=== PATIENT | female | born 1980 | race Asian ===

== ENCOUNTER 2025-03-11 09:27 | Outpatient (AMB) | payer OTHER, SELFPAY ==
--- NOTE | 2025-03-11 09:27 | A.OFFPC_ITS ---
Vital Signs 03/11/25 09:31 Height 5 ft 2.32 in Weight 103 lb 2 oz BMI 18.7 BP 108/76 Blood Pressure Location Lt brachial Position Sitting Respiration 16 Pulse 73 Pulse Source Pulse Oximeter Temp 97.9 F Temp Source Temporal Artery Scan Pulse Oximetry (%) 99 Oxygen Delivery Method Room Air Intake Visit Reasons: Establish Care Automatic Maintainer Required: No Accompanied by: Self / Same As Patient Allergies No Known Allergies Allergy (Verified 03/11/25 09:49) Medication List - Last Reconciled 03/11/25 by Antonieta Stephens PA-C amiloride 10 mg PO DAILY cetirizine (Zyrtec) 10 mg PO DAILY PRN magnesium oxide 800 mg PO ONCE potassium chloride ER (Klor-Con M) mEq PO Tobacco use date assessed: 03/11/25 Dental Screening Dental Screen Date: 03/11/25 Did you have a dental visit in the last 12 months?: Yes Did you have a dental problem in the last 6 months where you did not have access to dental care?: No Was dental information given to patient?: Patient has dentist HPI Establish Care HPI Details The patient is a 44-year-old female presenting for a primary physical exam and to establish care with a new primary care provider. The patient has a history of Gitelman syndrome, for which she is followed by a steam roller operator, Dr. Sb Escobedo, in [place]. She is currently on medications including Amiloride, magnesium, and potassium supplements to manage her condition. The patient reports having thyroid nodules, which were identified several years ago. She has not had a recent ultrasound and plans to have it rechecked to assess the current status of the nodules. She experiences seasonal allergies for which she takes Zyrtec. The patient has not had a mammogram in two years and is due for a screening, which will be arranged at [facility]. She is also considering a Cologuard test for colon cancer screening, as she approaches the age of 45. 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 1. Little interest or pleasure in doing things: not at all 2. Feeling down, depressed, or hopeless: not at all 3. Trouble falling or staying asleep, or sleeping too much: not at all 4. Feeling tired or having little energy: not at all 5. Poor appetite or overeating: not at all 6. Feeling bad about yourself - or that you are a failure or have let yourself or your family down: not at all 7. Trouble concentrating on things, such as reading the newspaper or watching television: not at all 8. Moving or speaking so slowly that other people could have noticed. Or the opposite - being so fidgety or restless that you have been moving around a lot more than usual: not at all 9. Thoughts that you would be better off or of hurting yourself in some way: not at all Total score: 0 Depression Screening Interpretation: Negative Depression Screening Done: Yes 61774 - PHQ-9 Billing: Yes Source: Developed by Drs. Yogesh Monreal, Veronica Jernigan, Clyde Kahn and colleagues, with an educational eduardo from [employer]. Thrive Questionnaire Date Thrive assessed: 03/11/25 I am a: Patient What is your living situation today?: I have a steady place to live Within the past 12 months, did the food you bought not last and you didn't have the money to get more?: Never true Within the past 12 months, did you worry whether your food would run out before you got money to buy more?: Never true Do you have trouble paying for medicines?: No Do you have trouble getting transportation to medical appointments?: No Do you have trouble paying your heating and electricity bill?: No Do you have trouble taking care of your child, family member or friend?: No Do you have trouble with day-to-day activities such as bathing, preparing meals, shopping, managing finances, etc.?: No Are you currently unemployed and looking for a job?: No Are you interested in more education?: No Please select the resources that you would like help with: None Currently or been in a relationship where the following occur: No concerns reported THRIVE Score: 0 AUDIT C Alcohol Use Questionnaire (AUDIT-C) 1. How often do you have a drink containing alcohol?: Monthly or less 2. How many drinks containing alcohol do you have on a typical day when you are drinking?: 1 or 2 3. How often do you have six or more drinks on one occasion?: Never Total Score: 1 Score Reviewed/Action Taken: No JEROME-7 AMB Questionnaire JEROME-7 Date JEROME - 7 assessed: 03/11/25 Feeling nervous, anxious, or on edge: 0 = Not at all Not being able to stop or control worryin = Not at all Worrying too much about different things: 0 = Not at all Trouble relaxin = Not at all Being so restless that it is hard to sit still: 0 = Not at all Becoming easily annoyed or irritable: 0 = Not at all Feeling afraid as if something awful might happen: 0 = Not at all Total JEROME-7 score (0-4 normal; 5-9 mild; 10-14 moderate; 15-21 severe): 0 Source: Developed by Drs. Yogesh Monreal, Veronica Jernigan, Clyde Kahn and colleagues, with an educational eduardo from [employer]. JEROME-7 Assessment Billing JEROME-7 Assessment Tool: JEROME-7 Assessment 92426 Review of Systems Const Details: - Endocrine: Reports thyroid nodules, denies recent ultrasound - Gastrointestinal: Denies abdominal pain, reports soft bowel movements due to magnesium - Renal: Denies pain over kidneys - Cardiovascular: Denies chest pain, palpitations - Musculoskeletal: Denies leg swelling or pain - Sensory: Denies vision or hearing issues All systems reviewed & are unremarkable except as noted in HPI and below Physical exam (Primary Care) Vital Signs: Last Vital Signs Temp 97.9 F 03/11/25 09:31 Pulse 73 03/11/25 09:31 Resp 16 03/11/25 09:31 BP 108/76 03/11/25 09:31 Pulse Ox 99 03/11/25 09:31 Oxygen Delivery Method Room Air 03/11/25 09:31 BMI result Body Mass Index 18.7 normal bmi Tobacco/Smoking Status: Tobacco use Status Tobacco use date assessed 03/11/25 03/11/25 09:47 Patient Tobacco Use Status Never used Tobacco 03/11/25 09:47 PHQ-9: PHQ-9 Score PHQ-9: Total score 0 03/11/25 09:49 Depression Screening Interpretation: Negative Thrive Assessment: Date of Thrive Assessment Date Thrive assessed 03/11/25 03/11/25 09:47 Currently or been in a relationship where the following occur: No concerns reported Const Other: Appearance: Alert. Oriented X3. No acute distress. Head: Normal external exam. Normocephalic. Atraumatic. Eyes: Pupils are equal, round, and reactive to light. Extraocular movements intact. Conjunctiva and sclera normal. Eyelids normal. Ears: External auditory canal normal. Tympanic membranes normal. Throat: Pharynx normal. Uvula midline. Moist mucous membranes. Neck: Normal inspection. Neck supple. Full range of motion. No adenopathy. Thyroid nodules present. No meningeal signs. No neck mass noted. Cardiovascular: Normal heart rate and rhythm. Heart sound normal. No murmurs noted. Pulses normal throughout. Respiratory: No respiratory distress. Painless inspiration. Breath sounds normal. No wheezes/rales/rhonchi noted. Chest nontender. No accessory muscle usage noted or decreased air movement noted. Abdomen: Soft and nontender. No distention noted. No organomegaly noted. Back: No costovertebral angle tenderness. Full range of motion noted. Skin: Skin warm and dry. Normal skin color. Normal skin turgor. No rashes/lesions/lacerations noted. Extremities: No lower extremity edema. Extremities exhibit normal range of motion. Neuro: Oriented X 3. No motor deficit. No sensory deficit. Reflexes normal. Coding Level of Care Code New Pt Level 4 (43976) New Pt Prev Care 40-64y(61233) Diagnoses Annual physical exam Z00.00 Gitelman syndrome N15.8 Thyroid nodule E04.1 Preventative health care Z00.00 Additional Codes JEROME-7 Assessment Billing - JEROME-7 Assessment Tool: JEROME-7 Assessment 23480 ([id number]) PHQ-9 - 91000 - PHQ-9 Billing: Yes ([id number]) Assessment & Plan Assessment & Plan (1) Annual physical exam: Code(s): Z00.00 - Encounter for general adult medical examination without abnormal findings Category: Medical (2) Gitelman syndrome: Code(s): N15.8 - Other specified renal tubulo-interstitial diseases Category: Medical Plan: The patient will continue to be managed by her steam roller operator, Dr. Sb Escobedo, with ongoing medication including Oleri, magnesium, and potassium supplements. A referral for nephrology has been placed to ensure continuity of care under the new insurance plan. (3) Thyroid nodule: Code(s): E04.1 - Nontoxic single thyroid nodule Category: Medical Plan: The patient will undergo a thyroid ultrasound to reassess the nodules, given the lapse in recent imaging. Depending on the results, a referral to endocrinology may be considered. (4) Preventative health care: Code(s): Z00.00 - Encounter for general adult medical examination without abnormal findings Category: Medical Plan: A mammogram referral has been made to [facility], as the patient is due for her biennial screening. The patient is considering a Cologuard test for colon cancer screening, with plans to initiate this at age 45. Plan Plan Patient was informed and verbally consented to the use of an ambient scribe for clinic note documentation during this visit. 1. Gitelman Syndrome The patient will continue to be managed by her steam roller operator, Dr. Sb Escobedo, with ongoing medication including Oleri, magnesium, and potassium supplements. A referral for nephrology has been placed to ensure continuity of care under the new insurance plan. 2. Thyroid Nodules The patient will undergo a thyroid ultrasound to reassess the nodules, given the lapse in recent imaging. Depending on the results, a referral to endocrinology may be considered. 3. Preventative Care: Mammogram A mammogram referral has been made to [facility], as the patient is due for her biennial screening. 4. Preventative Care: Colon Cancer Screening The patient is considering a Cologuard test for colon cancer screening, with plans to initiate this at age 45. During the visit, we discussed the need for a mammogram and colon cancer scr eening as part of the patient's preventative care. I explained the process of the Cologuard test and its role in detecting polyps, as well as the importance of regular thyroid ultrasounds given her history of nodules. We also reviewed her current management plan for Gitelman syndrome and ensured that a nephrology referral was in place. Orders: Orders MM screening mammo BI Today Z12.31 - Encounter for screening mammogram for malignant neoplasm of breast Liver Panel Today Z00.00 - Encounter for general adult medical examination without abnormal findings Magnesium Today Z00.00 - Encounter for general adult medical examination wit hout abnormal findings Vitamin B12 and Folate Today Z00.00 - Encounter for general adult medical examination without abnormal findings Vitamin D 25-OH Total Today Z00.00 - Encounter for general adult medical examination without abnormal findings TSH reflex Free T4 Today Z00.00 - Encounter for general adult medical exa mination without abnormal findings C Reactive Protein Today Z00.00 - Encounter for general adult medical examination without abnormal findings Complete Blood Count Auto Diff Today Z00.00 - Encounter for general adult medical examination without abnormal findings Comprehensive [place]. Panel Fast Today Z00.00 - Encounter for general adult medical examination without abnormal findings Hemoglobin A1c Today Z00.00 - Encounter for general adult medical examination without abnormal findings Lipid Panel Today Z00.00 - Encounter for general adult medical examination without abnormal findings US thyroid Today E04.1 - Nontoxic single thyroid nodule, N15.8 - Other specified renal tubulo-interstitial diseases, Z00.00 - Encounter for general adult medical examination without abnormal findings Referrals Nephrology Referral N15.8 - Other specified renal tubulo-interstitial diseases Patient Instructions: - Schedule a mammogram at [facility] as soon as possible. - Consider scheduling a Cologuard test for colon cancer screening at age 45. - Follow up with steam roller operator, Dr. Sb Escobedo, for ongoing management of Gitelman syndrome. - Arrange for a thyroid ultrasound to reassess nodules.
[2025-03-11 09:31] VITALS: BP 108/76; PULSE 73; RESP 16; TEMP 36.6; O2SAT 99; BMI 18.7
--- OUTSIDE RECORDS SUMMARY | 2025-03-11 10:01 | XMS_ITS | Clinical Summary ---
Author Organization [facility], Address [address] [address] Phone Care Team Providers Care Program Development Manager Name Role Phone Rik Matta MD Primary Care Provider + Allergies No known active allergies Medications POTASSIUM CITRATE PO Take 10 mEq by mouth Active potassium chloride (KLOR-CON) 20 MEQ CR tablet Take 3 tablets in the AM and 4 tablets in the PM 210 tablet 04/22/2024 Active aMILoride (MIDAMOR) 5 MG tablet Take 2 tablets (10 mg total) by mouth 1 (one) time each day 180 tablet 3 05/17/2024 5 Active potassium chloride (KLOR-CON) 20 MEQ CR tablet Take 3 tablets in the AM and 4 tablets in the PM 630 tablet 3 05/17/2024 Active magnesium oxide (MAG-OX) 400 MG tablet Take 2 tablets (800 mg total) by mouth 1 (one) time each day 60 tablet 3 01/29/2025 6 Active Active Problems Problem Noted Date Diagnosed Date Gitelman syndrome 05/05/2022 Hypomagnesemia 12/28/2021 Hypokalemia 12/28/2021 Encounters Date Type Department Care Team Description 01/29/2025 Orders Only [facility], [address] [place] [address] Carina Govea MA from Last 3 Months Immunizations Immunization Administration Dates Next Due Influenza, MDCK, PF, Quadrivalent 05/08/2020 Family History Medical History Relation Comments Hepatitis Father Cancer Maternal Grandfather Hyperlipidemia Mother Dementia Paternal Grandfather Relation Status Comments Father Maternal Grandfather Mother Paternal Grandfather Social History Tobacco Use Types Packs/Day Years Used Date Smoking Tobacco: Never Assessed Comments Unknown Sex and Gender Information Value Date Recorded Sex Assigned at Not on file Legal Sex Female 8:44 AM EDT Gender Identity Not on file Sexual Orientation Not on file Plan of Treatment Upcoming Encounters Date Type Department Care Team (Late st Contact Info) Description 03/14/2025 9:30 AM EDT Office Visit [facility], - [address] [place] [phone] Sb Escobedo MD [address] [facility] [place] [id number] Health Maintenance Due Date Last Done Comments Hepatitis B Vaccine (1 of 3 - 19+ 3-dose series) 12/08/1999 Influenza Vaccine (#1) 2025 05/08/2020 Pneumococcal Vaccine: Peds ( 0 to 5 Years) and At-Risk Patients (6 to 49 Years) Aged Out No longer eligible b ased on patient's age to complete this topic Insurance [facility] Care Teams Program Development Manager Relationship Specialty Start Date End Date Rik Matta MD [facility] [address] [place] [address] [address] [place] [address] PCP - General Internal Medicine 03/11/25
--- OUTSIDE RECORDS SUMMARY | 2025-03-11 10:01 | XMS_ITS | Encounter Summary ---
Author Organization [facility], Address [address] [place] [address] Phone Care Team Providers Care House Designer Name Role Phone Rik Matta MD Primary Care Provider + Encounter Details Date Type Department Care Team (Late st Contact Info) Description 08/11/2023 Orders Only [facility] [place] [place] [address] Sb Escobedo MD [address] [place] [address] [place] [address] Gitelman syndrome Social History Tobacco Use Types Packs/Day Years Used Date Smoking Tobacco: Never Assessed Comments Unknown Sex and Gender Information Value Date Recorded Sex Assigned at Not on file Legal Sex Female 8:44 AM EDT Gender Identity Not on file Sexual Orientation Not on file documented as of this encounter Plan of Treatment Upcoming Encounters Date Type Department Care Team (Late st Contact Info) Description 03/14/2025 9:30 AM EDT Office Visit [facility] [address] [place] [phone] Sb Escobedo MD [address] [place] [address] [place] [address] documented as of this encounter Visit Diagnoses Diagnosis Gitelman syndrome documented in this encounter Care Teams House Designer Relationship Specialty Start Date End Date Rik Matta MD [address] [place] [address] PCP - General Internal Medicine 03/11/25 documented as of this encounter
--- OUTSIDE RECORDS SUMMARY | 2025-03-11 10:01 | XMS_ITS | Encounter Summary ---
Author Organization [facility], Address [address] [place] [address] Phone Care Team Providers Care Head Of Design Name Role Phone Rik Matta MD Primary Care Provider + Encounter Details Date Type Department Care Team (Late st Contact Info) Description 05/23/2023 Documentation Only [facility] [address] [place] [address] Sb Escobedo MD [address] [place] [address] [place] [address] Social History Tobacco Use Types Packs/Day Years [...] Visit [facility] [address] [place] [phone] Sb Escobedo MD [address] [place] [address] [place] [address] Scheduled Orders Name Type Priority Associated Diagnoses Orde r Schedule Renal function panel Lab Routine Gitelman syndrome Every 12 Weeks for 4 Occurrences starting 05/23/2023 until 06/22/2024 Magnesium Lab Routine Gitelman syndrome Every 12 Weeks for 4 Occurrences starting 05/23/2023 until 06/22/2024 documented as of this encounter Visit Diagnoses Diagnosis Gitelman syndrome- Primary documented in this encounter Care Teams Head Of Design Relationship Specialty Start Date End Date Rik Matta MD [address] [address] PCP - General Internal Medicine 03/11/25 documented as of this encounter
--- OUTSIDE RECORDS SUMMARY | 2025-03-11 10:01 | XMS_ITS | Encounter Summary ---
Author Organization [facility], Address [address] [place] [address] Phone Care Team Providers Care Charge Authorizer Name Role Phone Rik Matta MD Primary Care Provider + Reason for Visit * Reason Comments Med Refill Encounter Details Date Type Department Care Team (Late st Contact Info) Description 08/03/2022 Refill [facility] [address] [place] [address] Sb Escobedo MD [address] [place] [address] [place] [address] Social History Tobacco Use Types [...] Visit [facility] [address] [place] [phone] Sb Escobedo MD [address] [place] [address] [place] [address] documented as of this encounter Visit Diagnoses Not on filedocumented in this encounter Care Teams Charge Authorizer Relationship Specialty Start Date End Date Rik Matta MD [address] [place] [address] PCP - General Internal Medicine 03/11/25 documented as of this encounter
--- OUTSIDE RECORDS SUMMARY | 2025-03-11 10:01 | XMS_ITS | Encounter Summary ---
Author Organization [facility], Address [address] [place] [address] Phone Care Team Providers Care Metal Flooring Installer Name Role Phone Rik Matta MD Primary Care Provider + Encounter Details Date Type Department Care Team (Late st Contact Info) Description 05/05/2023 Documentation Only [facility] [address] [place] [address] Sb Escobedo MD [address] [place] [address] [place] [address] Social History Tobacco Use Types [...] Visit [facility] [address] [place] [phone] bS Escobedo MD [address] [place] [address] [place] [address] documented as of this encounter Visit Diagnoses Not on filedocumented in this encounter Care Teams Metal Flooring Installer Relationship Specialty Start Date End Date Rik Matta MD [address] [facility] [place] [address] PCP - General Internal Medicine 03/11/25 documented as of this encounter
--- OUTSIDE RECORDS SUMMARY | 2025-03-11 10:01 | XMS_ITS | Encounter Summary ---
Author Organization [facility] Address [facility] [address] [place] [address] Phone Care Team Providers Care Registry Nurse Name Role Phone Brinda Dow MD Primary Care Provider + Brinda Dow MD Primary Care Provider + Brinda Dow MD Unavailable +[phone] Encounter Details Date Type Department Care Team (Late st Contact Info) Description 12/15/2021 Procedure Pass [facility] - [address] [place] [address] Social History Tobacco Use Types Packs/Day Years Used Date Smoking Tobacco: Never Smokeless Tobacco: Never Alcohol Use Standard Drinks/Week Comments Yes 0 (1 standard drink = 0.6 oz pur e alcohol) social Comments No Sex and Gender Information Value Date Recorded Sex Assigned at Not on file Legal Sex Female 1:45 PM EDT Gender Identity Not on file Sexual Orientation Not on file documented as of this encounter Plan of Treatment Not on file documented as of this encounter Visit Diagnoses Not on filedocumented in this encounter Care Teams Registry Nurse Relationship Specialty Start Date End Date Brinda Dow MD [address] [place] [address] [place] [address] PCP - General 12/21/21 Brinda Dow [place] [address] PCP - General 12/20/21 12/20/21 Brinda Dow MD [address] [place] [address] [email or web address] Insurance Assigned Provider 10/21/23 04/21/24 documented as of this encounter Additional Source Comments The information contained in this document represents components of the legal health record. It is not the complete legal health record.[facility]
--- OUTSIDE RECORDS SUMMARY | 2025-03-11 10:01 | XMS_ITS | Encounter Summary ---
Author Organization [facility], Address [address] [place] [address] Phone Care Team Providers Care Will Call Clerk Name Role Phone Rik Matta MD Primary Care Provider + Encounter Details Date Type Department Care Team (Late st Contact Info) Description 12/21/2022 Documentation Only [facility] [address] [place] [address] Giuliana Dow MD [address] [place] [address] Social History Tobacco Use Types Packs/Day Years [...] Visit [facility] [address] [place] [phone] Sb Escobedo MD [facility] [address] [place] [phone] documented as of this encounter Visit Diagnoses Not on filedocumented in this encounter Care Teams Will Call Clerk Relationship Specialty Start Date End Date Rik Matta MD [address] [place] [address] PCP - General Internal Medicine 03/11/25 documented as of this encounter
--- OUTSIDE RECORDS SUMMARY | 2025-03-11 10:01 | XMS_ITS | Encounter Summary ---
Author Organization [facility] [place], Address [address] [place] [address] Phone Care Team Providers Care Property Assistant Name Role Phone Rik Matta MD Primary Care Provider + Encounter Details Date Type Department Care Team (Late st Contact Info) Description 05/12/2023 Documentation Only [facility] [address] Radha [address] [place] [address] Sb Escobedo MD [address] [place] [address] [place] [address] Social History Tobacco Use Types [...] Visit [facility] Priyanka [address] [place] [phone] Sb Escobedo MD [address] [place] [address] [place] [address] documented as of this encounter Visit Diagnoses Not on filedocumented in this encounter Care Teams Property Assistant Relationship Specialty Start Date End Date Rik Matta MD [address] [facility] [place] [address] PCP - General Internal Medicine 03/11/25 documented as of this encounter
--- OUTSIDE RECORDS SUMMARY | 2025-03-11 10:01 | XMS_ITS | Encounter Summary ---
Author Organization [facility] [place], Address [address] [place] [address] Phone Care Team Providers Care Apparel Manager Name Role Phone Rik Matta MD Primary Care Provider + Encounter Details Date Type Department Care Team (Late st Contact Info) Description 01/26/2024 Orders Only [facility] [address] Radha [address] [place] [address] Sb Escobedo MD [address] [place] [address] [place] [address] Gitelman syndrome Social History Tobacco [...] Visit [facility] Chel [address] [place] [phone] Sb Escobedo MD [address] [place] [address] [place] [address] documented as of this encounter Visit Diagnoses Diagnosis Gitelman syndrome documented in this encounter Care Teams Apparel Manager Relationship Specialty Start Date End Date Rik Matta MD [address] [place] [address] PCP - General Internal Medicine 03/11/25 documented as of this encounter
--- OUTSIDE RECORDS SUMMARY | 2025-03-11 10:01 | XMS_ITS | Encounter Summary ---
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
--- OUTSIDE RECORDS SUMMARY | 2025-03-11 10:01 | XMS_ITS | Encounter Summary ---
Author Organization [facility] [place], Address [address] [place] [address] Phone Care Team Providers Care Specimen Accessioner Name Role Phone Rik Matta MD Primary Care Provider + Reason for Visit * Reason Comments Med Refill Encounter Details Date Type Department Care Team (Late st Contact Info) Description 08/03/2022 Refill [facility] [address] [place] [address] Sb Escobedo MD [address] [place] [address] [place] [address] Social History Tobacco Use Types [...] Visit [facility] [address] Radha [address] [place] [phone] Sb Escobedo MD [address] [place] [address] [place] [address] documented as of this encounter Visit Diagnoses Not on filedocumented in this encounter Care Teams Specimen Accessioner Relationship Specialty Start Date End Date Rik Matta MD [address] [place] [address] PCP - General Internal Medicine 03/11/25 documented as of this encounter
--- OUTSIDE RECORDS SUMMARY | 2025-03-11 10:02 | XMS_ITS | Clinical Summary ---
Author Organization [facility] Address [address] [facility] [address] [place] [address] Phone Care Team Providers Care Quality Improvement Coordinator (Rn) Name Role Phone Brinda Dow MD Primary Care Provider + Allergies No known active allergies Social History Tobacco Use Types Packs/Day Years Used Date Smoking Tobacco: Never Smokeless Tobacco: Never Alcohol Use Standard Drinks/Week Comments Yes 0 (1 standard drink = 0.6 oz pur e alcohol) social Education Answer Date Recorded Are you interested in more education? Not on bryan e 11/12/2022 Are you concerned about learning? Not on file 11/12/2022 No 11/12/2022 No 11/12/2022 Digital Access Answer Date Recorded No 12/13/2022 No 12/13/2022 Reliable internet access at home? Not on file 12/13/2022 Device with a working camera? Not on file Comments No Sex and Gender Information Value Date Recorded Sex Assigned at Not on file Legal Sex Female 1:45 PM EDT Gender Identity Not on file Sexual Orientation Not on file Last Filed Vital Signs Vital Sign Reading Time Taken Comments Blood Pressure 107/72 12/20/2021 5:12 PM EDT Pulse 100 12/20/2021 5:12 PM EDT Temperature 37.3 C (99.1 F) 12/20/2021 5:12 PM EDT Respiratory Rate 12 12/20/2021 5:12 PM EDT Oxygen Saturation 100% 12/20/2021 5:12 PM EDT Inhaled Oxygen Concentration - - Weight 44 kg (97 lb) 12/20/2021 1:24 PM EDT Height - - Body Mass Index - - Plan of Treatment Health Maintenance Due Date Last Done Comments Adult Td,Tdap Booster 1980 DEPRESSION SCREENING 1992 HEPATITIS C SCREENING 1998 HIV ONE-TIME SCREENING (18-6 5 YEARS) 1998 PAP SMEAR 2001 MAMMOGRAM 03/04/2024 03/04/2022 COVID-19 VACCINE (2023-2 5 season) 2024 SMOKING STATUS SCREENING (On ce After 26 Yrs) Completed 03/04/2022 HEPATITIS A VACCINES Aged Out No long er eligible based on patient's age to complete this topic HIB VACCINES Aged Out No longer eligi ble based on patient's age to complete this topic MENINGOCOCCAL VACCINES (ACWY) Aged Out No longer eligible based on patient's age to complete this topic MENINGOCOCCAL VACCINES (B) Aged Out N o longer eligible based on patient's age to complete this topic PNEUMOCOCCAL VACCINES (0-49 years) Aged Out No longer eligible based on patient's age to complete this topic Medical Devices Not on file Procedures Procedure Name Priority Date/Time Associated Diagnosis Comments BI MAMMOGRAM SCREENING WITH TOMOSYNTHESIS WITH CAD (BILATERAL) Routine 03/04/2022 10:36 AM EDT Breast screening from Last 3 Months or Most Recently Relevant to Health Maintenance Results * BI MAMMOGRAM SCREENING WITH TOMOSYNTHESIS WITH CAD (BILATERAL) (03/04/2022 10:36 AM EDT) Anatomical Region Laterality Modality Breast Left, Breast Right, Breast Bilateral Bila teral Mammography 03/05/2022 10:4 7 AM EDT Impressions 03/05/2022 10:49 AM EDT BILATERAL BREASTS: Negative, no specific mammographic evidence of malignancy. Normal interval follow-up is recommended in 12 months. BI-RADS: BI-RADS CATEGORY: 1 - Negative. DENSITY: The breast tissue is heterogeneously dense, which could obscure a lesion on mammography. Narrative 03/05/2022 10:49 AM EDT STUDY: Bilateral screening mammography with tomosynthesis and CAD TECHNIQUE: Bilateral full-field digital screening mammography is obtained and read in conjunction with computer-aided detection. Tomosynthesis as well as 2-D C view imaging were obtained. COMPARISON: None. This is a baseline study. BREAST COMPOSITION: The breast tissue is heterogeneously dense, which may obscure small masses. BILATERAL BREASTS: No significant masses, suspicious calcifications or other abnormalities are seen in either breast. Procedure Note Jerome Arizmendi MD - 03/05/2022 STUDY: Bilateral screening mammography with tomosynthesis and CAD TECHNIQUE: Bilateral full-field digital screening mammography is obtainedand read in conjunction with computer-aided detection. Tomosynthesis aswell as 2-D C view imaging were obtained. COMPARISON: None. This is a baseline study. BREAST COMPOSITION: The breast tissue is heterogeneously dense, which mayobscure small masses. BILATERAL BREASTS: No significant masses, suspicious calcifications orother abnormalities are seen in either breast. IMPRESSION: BILATERAL BREASTS: Negative, no specific mammographic evidence ofmalignancy. Normal interval follow-up is recommended in 12 months. BI-RADS: BI-RADS CATEGORY: 1 - Negative. DENSITY: The breast tissue is heterogeneously dense, which could obscurea lesion on mammography. us Brinda Dow MD IMG MG EXAMS Final Re sult from Last 3 Months or Most Recently Relevant to Health Maintenance Insurance [facility] [employer] [facility] [employer] POS [facility] [employer] POS [facility] [employer] POS Care Teams Quality Improvement Coordinator (Rn) Relationship Specialty Start Date End Date Brinda Dow MD [address] [place] [id number] PCP - General 12/21/21 Additional Source Comments The information contained in this document represents components of the legal health record. It is not the complete legal health record.[facility]
--- OUTSIDE RECORDS SUMMARY | 2025-03-11 10:02 | XMS_ITS | Encounter Summary ---
Author Organization [facility] [place], Address [address] [place] [address] Phone Care Team Providers Care Caseworker Name Role Phone Rik Matta MD Primary Care Provider + Reason for Visit * Reason Comments New Med Request Encounter Details Date Type Department Care Team (Late Contact Info) Description 04/18/2022 Refill [facility] [place] [facility] [address] [facility] [address] [place] [phone] Sb Escobedo MD [address] [place] [address] [place] [address] Social History Tobacco Use Types Packs/Day Years Used Date Smoking Tobacco: Never Assessed Comments Unknown Sex and Gender Information Value Date Recorded Sex Assigned at Not on file Legal Sex Female 8:44 AM EDT Gender Identity Not on file Sexual Orientation Not on file documented as of this encounter Plan of Treatment Upcoming Encounters Date Type Department Care Team (Late Contact Info) Description 03/14/2025 9:30 AM EDT Office Visit [facility] [place], - Chel [address] [facility] [address] [place] [phone] Sb Escobedo MD [address] [place] [address] [place] [address] documented as of this encounter Visit Diagnoses Not on filedocumented in this encounter Care Teams Caseworker Relationship Specialty Start Date End Date Rik Matta MD [address] [place] [address] PCP - General Internal Medicine 03/11/25 documented as of this encounter
--- OUTSIDE RECORDS SUMMARY | 2025-03-11 10:02 | XMS_ITS | Encounter Summary ---
Author Organization [facility] [place], Address [address] [place] [address] Phone Care Team Providers Care Distribution Tech Name Role Phone Rik Matta MD Primary Care Provider + Encounter Details Date Type Department Care Team (Late st Contact Info) Description 05/03/2023 Documentation Only [facility] [address] Radha [address] [place] [address] Sb Escobedo MD [address] [place] [address] [place] [address] Social History Tobacco Use Types [...] [facility] Priyanka [address] [place] [phone] Sb Escobedo MD [address] [place] [address] [place] [address] documented as of this encounter Visit Diagnoses Not on filedocumented in this encounter Care Teams Distribution Tech Relationship Specialty Start Date End Date Rik Matta MD [address] [place] [id number] PCP - General Internal Medicine 03/11/25 documented as of this encounter
== END 2025-03-11 10:05 | disposition home or self-care (01) ==
LOC: HO.HMCSH 09:27
PROVIDERS: PCP Internal Medicine; Visit Provider Physician Assistant Medical
DX: Z00.00 Encounter for general adult medical examination without abnormal findings (principal); N15.8 Other specified renal tubulo-interstitial diseases; E04.1 Nontoxic single thyroid nodule

== ENCOUNTER → 2025-03-11 09:27 | Outpatient (BNVA) | payer OTHER, SELFPAY | PROVIDERS: PCP Internal Medicine; Visit Provider Physician Assistant Medical | DX: Z00.00 Encounter for general adult medical examination without abnormal findings (principal); E04.1 Nontoxic single thyroid nodule; N15.8 Other specified renal tubulo-interstitial diseases | CPT/HCPCS: 96127 ==

== ENCOUNTER 2025-06-02 11:20 | Outpatient (REF) | payer OTHER, SELFPAY ==
--- NOTE | ~2025-06-02 | US_ITS ---
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 COMPARISON: None available. TECHNIQUE: Linear transducer grayscale and color Doppler examination with attention to the region of the thyroid. FINDINGS: SIZE: Measurements of the thyroid lobes and nodules are given in sagittal, anteroposterior and transverse dimensions respectively. Right Thyroid Lobe: 5.0 x 1.5 x 1.4 cm, volume 5.3 mL. Parenchyma: The gland echotexture is normal. Thyroid vascularity is normal. Left Thyroid Lobe: 4.9 x 1.6 x 1.6 cm, volume 6.5 mL. Parenchyma: The gland echotexture is normal. Thyroid vascularity is normal. Isthmus: 0.31 cm in maximum AP dimension. Estimated total number of nodules greater than or equal to 1 cm: 0. Stone Engraver nodules are described as follows: Less than 3 mm anechoic structures due to the parenchyma likely subcentimeter colloid cyst . NODES: No lymphadenopathy is seen in the tissue surrounding the thyroid gland. US/US thyroid IMPRESSION: ACR TI RADS category 1 ACR TI-RADS RECOMMENDATION REFERENCE: Ultrasound-guided fine-needle aspiration, followup ultrasound, no further follow up. * TR1 (0 point) and TR2 (2 points): No FNA or follow up. * TR3 (3 points): FNA if more than or equal to 2.5 cm in maximum dimension, followup ultrasound in 1, 3 and 5 years if 1.5 to 2.4 cm in maximum dimension. * TR4 (4-6 points): FNA if more than or equal to 1.5 cm in maximum dimension, followup ultrasound in 1, 2, 3 and 5 years if 1 to 1.4 cm in maximum dimension. * TR5 (more than or equal to 7 points): FNA if more than or equal to 1 cm in maximum dimension, followup ultrasound every year for 5 years if 0.5 to 0.9 cm in maximum dimension. * TR3, TR4 or TR5 nodules that are below the size threshold for followup receive no follow up. Electronically signed by: Gurvinder Bob MD 06/02/2025 11:56 AM [facility]
== END 2025-06-02 11:21 | disposition home or self-care (01) ==
LOC: HO.HMGCX 11:20
PROVIDERS: PCP Internal Medicine; Visit Provider Physician Assistant Medical
DX: Z00.00 Encounter for general adult medical examination without abnormal findings (principal); E04.1 Nontoxic single thyroid nodule; N15.8 Other specified renal tubulo-interstitial diseases
CPT/HCPCS: 76536

== ENCOUNTER → 2025-06-02 11:25 | Outpatient (BNV) | payer OTHER, SELFPAY | PROVIDERS: PCP Internal Medicine; Visit Provider Radiology Diagnostic Radiology | DX: E04.1 Nontoxic single thyroid nodule (principal) | CPT/HCPCS: 76536 ==